=== PATIENT | male | born 1975 | race African-American/Black ===

== ENCOUNTER 2018-01-28 16:06 | Observation (INO) | payer OTHER ==
[~2018-01-28] VITALS: Ht 185.4 cm; Wt 152.0 kg
[~2018-01-28 16:06] MED LIST: AMOXICILLIN500 MG OR; BACTRIM DS1 TAB PO; HYDROCHLOROT12.5 MG PO; IBUPROFEN800 MG OR; KLOR-CON 88 MEQ OR; LISINOPRIL10 MG PO; LORTAB 5 OR; LYRICA150 MG OR; MULTI VIT OR; MUPIROCIN2 % EX; VITAMIN C500 M1 OR; ZINC10 MG OR; [UNRECOGNIZED DRUG - OTHER] EX
[2018-01-28] MEDS ORDERED: POTASSIMIN75 MG PO (16:20)
[2018-01-28 17:06] LABS: HEMATOCRIT 42.9 % (39.0-50.0); HEMOGLOBIN 14.3 g/dl (14.0-18.0); IMMATURE GRANULOCYTES 0.3 % (0.0-5.0); MEAN CELL VOLUME 86.7 fL CALC (80.0-100.0); MEAN CORPUSCULAR HGB 28.9 pG CALC (26.0-32.0); MEAN CORPUSCULAR HGB CONC 33.3 g/L CALC (32.0-36.0); NEUT# 5.83 thou/uL (1.82-7.42); RED BLOOD COUNT 4.95 mill/uL (4.70-6.10); RED CELL DISTRI WIDTH 13.8 % (11.5-15.5)
[2018-01-28 17:21] LABS: ANION GAP 15 (6-22 (CALC)); BUN 17 mg/dL (9-20); BUN/CREATININE RATIO 12 (12-20 (CALC)); CARBON DIOXIDE 27 mmol/l (22-30); CHLORIDE 103 mmol/l (95-108); CREATININE 1.5 mg/dL (0.7-1.3); GFR 51 ML/MIN (>=60 (CALC)); GFR FOR AFR.AMER. > 60 ML/MIN (>=60 (CALC)); POTASSIUM 3.9 mmol/l (3.5-5.1); SODIUM 141 mmol/l (137-146)
[2018-01-28 17:22] LABS: PROTHROMBIN TIME 10.8 SECONDS (9.0-12.5)
[2018-01-28 19:30] VITALS: BP 131/78
[2018-01-29 04:00] VITALS: BP 107/66
[2018-01-29 08:33] VITALS: BP 128/69
[2018-01-29 16:00] VITALS: BP 127/38
[2018-01-29] MEDS ORDERED: XARELTO15 MG PO (17:39)
== END 2018-01-29 18:50 | disposition home or self-care (01) | DRG 303 ==
LOC: ED 16:06 → ED-I 16:25 → ED 16:25 → ED-I 18:28 → ED 18:42 → MS2 18:43
PROVIDERS: Family Medicine; ADMIT General Practice; ATTEND General Practice
DX: I87.8 Other specified disorders of veins (principal); I10 Essential (primary) hypertension; E66.01 Morbid (severe) obesity due to excess calories; Z86.718 Personal history of other venous thrombosis and embolism
CPT/HCPCS: G0378

== ENCOUNTER 2018-09-11 12:38 | Observation (INO) | payer OTHER ==
[~2018-09-11] VITALS: Ht 185.4 cm; Wt 149.0 kg
[~2018-09-11 12:38] MED LIST changes: +POTASSIMIN75 MG PO; +XARELTO15 MG PO
--- NOTE | 2018-09-11 13:00 | NUR ---
PT TO ROOM W/STEADY GAIT.
[2018-09-11 13:43] LABS: HEMATOCRIT 45.4 % (39.0-50.0); HEMOGLOBIN 14.7 g/dl (14.0-18.0); IMMATURE GRANULOCYTES 0.5 % (0.0-5.0); MEAN CELL VOLUME 88.5 fL CALC (80.0-100.0); MEAN CORPUSCULAR HGB 28.7 pG CALC (26.0-32.0); MEAN CORPUSCULAR HGB CONC 32.4 g/L CALC (32.0-36.0); NEUT# 7.29 thou/uL (1.82-7.42); RED BLOOD COUNT 5.13 mill/uL (4.70-6.10); RED CELL DISTRI WIDTH 13.3 % (11.5-15.5)
--- NOTE | 2018-09-11 13:43 | NUR ---
PT WITH IV ESTABLISHED WITH BLOOD DRAW, STATES THIS HAS HAPPENED MANY TIMES IN THE PAST.
[2018-09-11 13:58] LABS: PROTHROMBIN TIME 10.5 SECONDS (9.0-12.5)
[2018-09-11 14:00] LABS: ANION GAP 15 (6-22 (CALC)); BUN 16 mg/dL (9-20); BUN/CREATININE RATIO 12 (12-20 (CALC)); CARBON DIOXIDE 26 mmol/l (22-30); CHLORIDE 103 mmol/l (95-108); CREATININE 1.3 mg/dL (0.7-1.3); GFR 60 ML/MIN (>=60 (CALC)); GFR FOR AFR.AMER. > 60 ML/MIN (>=60 (CALC)); POTASSIUM 4.2 mmol/l (3.5-5.1); SODIUM 140 mmol/l (137-146)
--- NOTE | 2018-09-11 14:36 | NUR ---
PT PROVIDED 5000 UNIT BOLUS AND STARTED WITH HEPARIN DRIP AT 1000 UNITS HOURLY PER EDP VERBAL DIRECTIONS. PT PROVIDED SANDWICH AND DRINK.
[2018-09-11] MEDS ORDERED: K-DUR/KLOR-CON20 MEQ PO (14:43)
[2018-09-11 15:10] VITALS: BP 141/80
--- NOTE | 2018-09-11 15:10 | NUR ---
PT TAKEN TO ICU 1 MED/SURG OVERFLOW, REPORT WAS TO NIKOLAS DAVIS.
--- NOTE | 2018-09-11 15:10 | NUR ---
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
--- NOTE | 2018-09-11 15:30 | NUR ---
DIETARY NOTIFED OF DIET ERQUESTING TRAY UNTIL DINNER PT IS HUNGRY, CALL FUNK WITHIN REACH.
--- NOTE | 2018-09-11 15:57 | NUR ---
PT SITTING UP IN BED, EATING TRAY FROM [place]. 250ml DARK YELLOW URINE EMPTIED FROM URINAL. PT EDUCATED ON HOW TO REPOSITION IN BED.
--- NOTE | 2018-09-11 16:25 | NUR ---
IN TO SEE PATIENT PLAN OF CA REDISCUSSED INCLDUING D/C COUMAIND START XARELTO WITH PLANNED D/C TOMORROW.
--- NOTE | 2018-09-11 16:39 | NUR ---
TOLERATED SANDWICH, OFFERS NO NEW COMPLAINTS, XARELTO STARTED PO AND HEPARIN GTT OFF ORDERED BY .
--- NOTE | 2018-09-11 17:59 | NUR ---
SET UP ASSIST PROVIDED FOR PM MEAL, TAMARA REMAINS OFF, TOOK MEDHAT EARLIER PO W/O INCIDENT, WILL CONTINUE TO MONITOR.
--- NOTE | 2018-09-11 19:00 | NUR ---
BEDSIDE REPORT RECEIVED FROM SUSAN CONNOR. PT SITTING UP IN BED REQUESTING TO USE BATHROOM. DETACHED FROM MONITOR AND PT AMUBLATING INDEPENDENTLY WITH LIMP FAVORING LEFT LEG TO BATHROOM. C/O MODERATE PAIN TO LLE AND REQUESTS PAIN MEDICATION. RESPIRATIONS EVEN AND UNLABORED ON ROOM AIR.
[2018-09-11 20:30] VITALS: BP 134/81
--- NOTE | 2018-09-11 20:30 | NUR ---
TYLENOL GIVEN FOR LLE PAIN AND TEMPERATURE OF 100.4. PT RESTING IN BED ON LEFT SIDE LISTENING TO MUSIC ON HIS PHONE. STATES THAT HE WAS FEELING HOT AND THEN COLD POSSIBLY RELATED TO TEMPERATURE INCREASE. PLAN OF CARE REVIEWED. PT ENCORUAGED TO VERABLIZE CONCERNS. STATES UNDERSTANDING. SAFETY MEASURES IN PLACE. CALL LIGHT WITHIN REACH.
--- NOTE | 2018-09-11 21:49 | NUR ---
PT WAS ASLEEP; AWAKENS TO VERBAL STIMULI. STATES THAT TYLENOL WAS EFFECTIVE FOR LEG PAIN AND NOW C/O BEING COLD. TEMPERATURE 100.2 AFTER TYLENOL.
[2018-09-12 00:04] VITALS: BP 144/64
--- NOTE | 2018-09-12 00:05 | NUR ---
PT ASLEEP AT THIS TIME ON LEFT SIDE. AFEBRILE. VS STABLE. IV SITE TO LAC APPEARS HEALTHY AND FLUSHES. PT USES CALL LIGHT PRN FOR ASSISTANCE. NO REQUESTS OR CONCERNS AT THIS TIME. CALL LIGHT WITHIN REACH.
[2018-09-12 04:07] VITALS: BP 133/74
--- NOTE | 2018-09-12 04:08 | NUR ---
LAB AT BEDSIDE. PT C/O PAIN TO LLE; DECLINES TYLENOL STATING THAT IT WAS NOT EFFECTIVE WHEN HE TOOK IT EARLIER, HE JUST FEEL ASLEEP. RESPIRATIONS EVEN AND UNLABORED ON ROOM AIR. AFEBRILE. UP TO VOID AT THIS TIME. NO ACUTE CHANGES IN CONDITION THROUGHOUT THE NIGHT.
[2018-09-12 05:40] LABS: HEMATOCRIT 43.7 % (39.0-50.0); HEMOGLOBIN 14.3 g/dl (14.0-18.0); IMMATURE GRANULOCYTES 0.4 % (0.0-5.0); MEAN CELL VOLUME 88.6 fL CALC (80.0-100.0); MEAN CORPUSCULAR HGB CONC 32.7 g/L CALC (32.0-36.0); NEUT# 6.75 thou/uL (1.82-7.42); RED BLOOD COUNT 4.93 mill/uL (4.70-6.10); RED CELL DISTRI WIDTH 13.4 % (11.5-15.5)
[2018-09-12 05:51] LABS: INTERNATIONAL NORMALIZED RATIO 1.1 RATIO (0.7-1.3); PROTHROMBIN TIME 11.4 SECONDS (9.0-12.5)
[2018-09-12 06:00] LABS: ALBUMIN 3.8 g/dL (3.2-5.0); ALKALINE PHOSPHATASE 58 u/l (38-126); AMYLASE < 30 u/l (30-110); ANION GAP 14 (6-22 (CALC)); BILIRUBIN, TOTAL 0.8 mg/dL (0.0-1.4); BUN 18 mg/dL (9-20); BUN/CREATININE RATIO 15 (12-20 (CALC)); CARBON DIOXIDE 27 mmol/l (22-30); CHLORIDE 103 mmol/l (95-108); CREATININE 1.2 mg/dL (0.7-1.3); GFR > 60 ML/MIN (>=60 (CALC)); GFR FOR AFR.AMER. > 60 ML/MIN (>=60 (CALC)); LIPASE 42 u/l (23-300); POTASSIUM 4.7 mmol/l (3.5-5.1); SGOT/AST 18 u/l (17-59); SODIUM 139 mmol/l (137-146)
--- NOTE | 2018-09-12 07:25 | NUR ---
PT RESTING INBED 1 MED SURG TELE OVERFLOW, PT ALERT AND ORIENTED, COMPLAINS OF THROBBING TO LLE DENIES PAIN OTHERWISE. 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
--- NOTE | 2018-09-12 07:30 | NUR ---
TOOTHBRUSH AND TOOTHPASTE PROVIDED ALONG WITH WARM WASHCLOTH FOR FACE AND HANDS, WILL CONTINUE TO MONITOR.
[2018-09-12 08:00] VITALS: BP 122/64
--- NOTE | 2018-09-12 08:26 | NUR ---
TOLERATED AM MEAL WELL WIHT 100% INTAKE, CALL FUNK WITHIN REACH
[2018-09-12 09:03] VITALS: BP 122/64
[2018-09-12] MEDS ORDERED: XARELTO15 MG PO (09:33)
--- NOTE | 2018-09-12 09:38 | NUR ---
IN TO SEE PATIENT, PLAN OF CARE DISCUSSED INCLUDING D/C HOME, INSTRUCTED TO FOLLOW UP WITH PCP UPON D/C AND TAKE MEDICATIONS PRESCRIBED.
[2018-09-12] MEDS ORDERED: DILAUDID4 MG PO (10:08)
--- NOTE | 2018-09-12 10:09 | NUR ---
ALL MONITORING EQUIPMETN REMOVED FOR PLANNED D/CA TPT REQUEST, IV ACCESS REMOVED INTACT, PPT OOB TO AMBULATE TO BATHROOM FRO ADL CARE,
--- NOTE | 2018-09-12 11:10 | NUR ---
Discharge instructions given. Patient verbalizes understanding of same. Discharged in stable condition via Wheelchair to Home with friend. All belongings sent with pt. SCRIPTD FOR ZACH AND MEDHAT SENT GUERA PATIENT.
== END 2018-09-12 11:10 | disposition home or self-care (01) | DRG 300 ==
LOC: ED 12:38 → ED-I 14:19 → ED 14:41 → ICU 14:42
PROVIDERS: Family Medicine; ADMIT Internal Medicine Nephrology; ATTEND Internal Medicine Nephrology
DX: I82.402 Acute embolism and thrombosis of unspecified deep veins of left lower extremity (principal); Z68.41 Body mass index [BMI] 40.0-44.9, adult; I10 Essential (primary) hypertension; E66.01 Morbid (severe) obesity due to excess calories; Z86.718 Personal history of other venous thrombosis and embolism; Z79.01 Long term (current) use of anticoagulants
CPT/HCPCS: J1644

== ENCOUNTER 2021-06-03 18:28 | Emergency (ER) | payer OTHER ==
[~2021-06-03] VITALS: Ht 185.4 cm; Wt 159.0 kg
[~2021-06-03 18:28] MED LIST changes: +DILAUDID4 MG PO; +K-DUR/KLOR-CON20 MEQ PO
[2021-06-03] MEDS ORDERED: CIPROFLOXACN500 MG PO (19:26)
[2021-06-03] MEDS ORDERED: FLOXIN OTIC0.3 % AS (19:26)
[2021-06-03] MEDS ORDERED: ULTRAM50 M1 PO (19:26)
[2021-06-03 19:40] VITALS: BP 139/90
== END 2021-06-03 19:40 | disposition home or self-care (01) | DRG 153 ==
LOC: ED 18:28
DX: H66.92 Otitis media, unspecified, left ear (principal); I10 Essential (primary) hypertension; Z86.718 Personal history of other venous thrombosis and embolism

== ENCOUNTER 2023-02-25 20:44 | Emergency (ER) | payer OTHER ==
[~2023-02-25] VITALS: Ht 185.4 cm; Wt 152.4 kg
[2023-02-25] VITALS (11 sets, daily range): BP systolic 109–142; BP diastolic 69–82
[~2023-02-25 20:44] MED LIST changes: +CIPROFLOXACN500 MG PO; +FLOXIN OTIC0.3 % AS; +ULTRAM50 M1 PO
[2023-02-25 22:40] LABS: BASO% 0.3 % (0-3); EOS% 1.8 % (0-8); HEMOGLOBIN 13.9 g/dl (14.0-18.0); IMMATURE GRANULOCYTES 0.7 % (0.0-5.0); MEAN CELL VOLUME 89.2 fL CALC (80.0-100.0); MEAN CORPUSCULAR HGB 29.5 pG CALC (26.0-32.0); MEAN CORPUSCULAR HGB CONC 33.1 g/dL CAL (32.0-36.0); MONO% 8.9 % (2-13); NEUT# 8.54 thou/uL (1.82-7.42); NEUT% 70.3 % (42-76); RED BLOOD COUNT 4.71 mill/uL (4.70-6.10); RED CELL DISTRI WIDTH 13.2 % (11.5-15.5)
[2023-02-25 22:50] LABS: ALBUMIN 3.9 g/dL (3.2-5.0); ALKALINE PHOSPHATASE 64 u/l (38-126); ANION GAP 12 (6-22 (CALC)); BILIRUBIN, TOTAL 0.7 mg/dL (0.2-1.3); BUN 14 mg/dL (9-20); BUN/CREATININE RATIO 9 (12-20 (CALC)); CARBON DIOXIDE 26 mmol/l (22-30); CHLORIDE 101 mmol/l (95-108); CREATININE 1.5 mg/dL (0.7-1.3); GFR FOR AFR.AMER. > 60 ML/MIN (>=60 (CALC)); GFR OTHER RACES 50 ML/MIN (>=60 (CALC)); POTASSIUM 4.3 mmol/l (3.5-5.1); SGOT/AST 24 u/l (17-59); SODIUM 135 mmol/l (137-146); TOTAL PROTEIN 7.3 g/dL (6.3-8.2)
[2023-02-26] VITALS: BP 123/73
[2023-02-26 00:15] VITALS: BP 113/73
[2023-02-26 00:30] VITALS: BP 123/78
[2023-02-26 00:45] VITALS: BP 116/71
[2023-02-26] MEDS ORDERED: VIBRAMYCIN100 M1 PO (02:07)
[2023-02-26] MEDS ORDERED: CLEOCIN300 MG PO (02:07)
== END 2023-02-26 02:30 | disposition home or self-care (01) | DRG 603 ==
LOC: ED 20:44
PROVIDERS: Emergency Medicine
DX: L03.115 Cellulitis of right lower limb (principal); I10 Essential (primary) hypertension; Z86.718 Personal history of other venous thrombosis and embolism